=== PATIENT | male | born 1990 | race Caucasian/White ===

== ENCOUNTER 2017-05-08 08:07 | Emergency (ER) | payer OTHER ==
[~2017-05-08] VITALS: Ht 175.3 cm; Wt 59.0 kg
[2017-05-08 08:10] VITALS: BP 125/69
--- NOTE | 2017-05-08 08:54 | NUR ---
Note undone in EDM - 05/08/17 at 0857 by [facility] PATIENT BIB [place] [facility] FOR PREBOOK; NO C/O PAIN AT THIS TIME;HX OF EPILEPSY;RX OF LORAZEPAM;DENIES N/V/D; SKIN IS PINK/WARM/DRY; AAOX4 WITH EVEN AND STEADY GAIT; LUNGS CLEAR BL; HR EVEN AND REGULAR; PT DENIES ANY FEVER, CP, SOB, OR COUGH AT THIS TIME; PATIENT STATES PAIN OF 0/10 AT THIS TIME; VSS; PATIENT POSITIONED FOR COMFORT; HOB ELEVATED; BEDRAILS UP X2; BED DOWN. ER MADE AWARE OF PT STATUS.
--- NOTE | 2017-05-08 08:54 | NUR ---
PATIENT BIB [place] [facility] FOR PREBOOK; NO C/O PAIN AT THIS TIME;HX OF EPILEPSY;RX OF LORAZEPAM;DENIES N/V/D; SKIN IS PINK/WARM/DRY; AAOX4 WITH EVEN AND STEADY GAIT; LUNGS CLEAR BL; HR EVEN AND REGULAR; PT DENIES ANY FEVER, CP, SOB, OR COUGH AT THIS TIME; PATIENT STATES PAIN OF 0/10 AT THIS TIME; VSS; PATIENT POSITIONED FOR COMFORT; ER MD MADE AWARE OF PT STATUS.
--- NOTE | 2017-05-08 09:40 | NUR ---
Patient discharged with v/s stable. Written and verbal after care instructions given and explained. Patient verbalized understanding. Police with steady gait. All questions addressed prior to discharge. Advised to follow up with PMD.
[2017-05-08 09:48] VITALS: BP 124/68
== END 2017-05-08 09:40 ==
LOC: MED 08:07
DX: Z02.89 Encounter for other administrative examinations (principal)
CPT/HCPCS: 99283

== ENCOUNTER 2019-01-30 17:40 | Emergency (ER) | payer MEDICAID, OTHER ==
[~2019-01-30] VITALS: Ht 175.3 cm; Wt 63.5 kg
[2019-01-30 17:45] VITALS: BP 136/94
--- NOTE | 2019-01-30 17:45 | NUR ---
IV removed, catheter intact and site benign. Applied folded 4x4 gauze and tape to stop bleeding.
--- NOTE | 2019-01-30 17:45 | NUR ---
PATIENT TRIAGED AT THIS TIME. PT EXPRESSING WISH TO NOT BE SEEN IN ED. VSS, ER MD JUNIOR SPEAKING WITH PATIENT. PT EDUCATED ON BENEFITS OF BEING TREATED IN THE ED.
--- NOTE | 2019-01-30 17:50 | NUR ---
PATIENT LEFT WITHOUT BEING SEEN BY DR. JUNIOR. NO FURTHER CARE PROVIDED FOR PATIENT.
== END 2019-01-30 17:50 | disposition left against medical advice (07) ==
LOC: MED 17:40
DX: T40.1X1A Poisoning by heroin, accidental (unintentional), initial encounter (principal); Z53.21 Procedure and treatment not carried out due to patient leaving prior to being seen by health care provider; Y92.89 Other specified places as the place of occurrence of the external cause

== ENCOUNTER 2021-12-16 15:40 | Emergency (ER) | payer MEDICAID, OTHER ==
[~2021-12-16] VITALS: Ht 172.7 cm; Wt 68.0 kg
[2021-12-16 15:47] VITALS: BP 124/77
--- NOTE | 2021-12-16 15:52 | NUR ---
C/O 09/23 RIGHT FOOT PAIN, REDNESS & SWELLING X 2 DAYS. DENIES TRAUMA/INJURY.
[2021-12-16] MEDS ORDERED: CEPH-588 PO (16:20)
[2021-12-16 16:44] VITALS: BP 123/76
== END 2021-12-16 16:44 | disposition home or self-care (01) ==
LOC: MED 15:40
DX: L03.115 Cellulitis of right lower limb (principal); Z79.899 Other long term (current) drug therapy
CPT/HCPCS: 99284

== ENCOUNTER 2022-06-15 13:54 | Emergency (ER) | payer MEDICAID, OTHER ==
[~2022-06-15] VITALS: Ht 175.3 cm; Wt 75.7 kg
[~2022-06-15 13:54] MED LIST: CEPH-588 PO
[2022-06-15 14:02] VITALS: BP 150/94
--- NOTE | 2022-06-15 14:07 | NUR ---
PT TAKEN TO [facility]
[2022-06-15] MEDS: KETOROLAC 30 MG/ML VIAL IM ONE (15:35)
[2022-06-15] MEDS: HYDROcodone/APAP 5/325 MG 1 TAB TAB PO ONE (16:41)
[2022-06-15] MEDS ORDERED: CYCL-711 PO (18:50)
[2022-06-15] MEDS ORDERED: ACET-8386 PO (18:50)
[2022-06-15 19:34] VITALS: BP 136/82
--- NOTE | 2022-06-15 19:34 | NUR ---
Patient discharged with v/s stable. Written and verbal after care instructions given and explained. Patient alert, oriented and verbalized understanding of instructions. Ambulatory with steady gait. All questions addressed prior to discharge. ID band removed. Patient advised to follow up with PMD. Rx of [place] and Flexeril given. Patient educated on indication of medication including possible reaction and side effects. Opportunity to ask questions provided and answered.
== END 2022-06-15 19:34 | disposition home or self-care (01) ==
LOC: MED 13:54
DX: R07.89 Other chest pain (principal); Z79.899 Other long term (current) drug therapy; Z98.890 Other specified postprocedural states
CPT/HCPCS: 71111; 71250; 96372; 99284; J1885

== ENCOUNTER 2023-10-14 16:08 | Observation (INO) | payer OTHER ==
[~2023-10-14] VITALS: Ht 175.3 cm; Wt 72.6 kg
[~2023-10-14 16:08] MED LIST changes: +ACET-8905 PO; +CYCL-711 PO
[2023-10-14 16:09] VITALS: BP 124/69; PULSE 102; RESP 22; TEMP 107; O2SAT 98
[2023-10-14] MEDS ORDERED: MIDAZOLAM 5 MG/1 ML VIAL ONE (16:11)
[2023-10-14] MEDS: MIDAZOLAM 5 MG/1 ML VIAL IM STA (16:33)
[2023-10-14] MEDS ORDERED: WATER STERILE 10 ML MC ONE (16:35)
[2023-10-14] MEDS: OLANZapine 10 MG VIAL IM ONE (16:41)
[2023-10-14 17:09] LABS: ALCOHOL, BLOOD < 3 mg/dL (<10)
[2023-10-14 17:10] LABS: ACETAMINOPHEN < 0.5 ug/ml (10-30)
[2023-10-14 18:26] LABS: ANION GAP 23.6 (8-16); BASOPHILS % (AUTO) 0.4 % (0.0-2.0); CALCIUM 9.5 mg/dL (8.5-10.1); CARBON DIOXIDE 22.1 mmol/L (21-32); CREATININE 1.2 mg/dL (0.6-1.3); EOSINOPHILS % (AUTO) 0.2 % (0.0-4.0); HEMATOCRIT 47.4 % (36-52); HEMOGLOBIN 16.3 g/dL (12.0-18.0); LYMPHOCYTES # (AUTO) 2.8 K/uL (2.0-11.5); MEAN CORPUSCULAR HEMOGLOBIN 29 pg (27-31); MEAN CORPUSCULAR HGB CONC 34 g/dL (33-37); MEAN CORPUSCULAR VOLUME 83.3 fL (80-94); MONOCYTES # (AUTO) 0.8 K/uL (0.8-1.0); MONOCYTES % (AUTO) 6.6 % (1.7-9.3); NEUTROPHILS # (AUTO) 8.1 K/uL (1.8-7.7); NEUTROPHILS % (AUTO) 68.8 % (42.2-75.2); PLATELET COUNT (AUTO) 507 K/uL (140-450); POTASSIUM 3.7 mmol/L (3.5-5.1); RED BLOOD CELL COUNT(AUTO) 5.69 MIL/uL (4.20-6.10); RED CELL DISTRIBUTION WIDTH 13.3 % (11.6-13.7); WHITE BLOOD COUNT (AUTO) 11.7 K/uL (4.8-10.8)
[2023-10-14] MEDS: NACL 0.9% 2,000 ML IV ONE (18:39)
[2023-10-14 18:59] LABS: APPEARANCE,URINE CLEAR (CLEAR); BILIRUBIN,URINE 1+ (NEGATIVE); BLOOD, URINE 2+ (NEGATIVE); COLOR,URINE YELLOW (YELLOW); LEUKOCYTE ESTERASE ,URINE NEGATIVE (NEGATIVE); NITRITE, URINE NEGATIVE (NEGATIVE); PROTEIN,URINE NEGATIVE (NEGATIVE); UGLUCOSE NEGATIVE (NEGATIVE); UROBILINOGEN,URINE 0.2 EU/dL (0.2 - 1)
[2023-10-14 19:05] LABS: AMPHETAMINE, URINE POSITIVE ng/ml (NEG <=1000); BARBITURATE, URINE NEGATIVE ng/ml (NEG <=200); BENZODIAZEPINE, URINE NEGATIVE ng/mL (NEG <=200); CANNABINOID, URINE NEGATIVE ng/mL (NEG <=50); COCAINE, URINE NEGATIVE ng/mL (NEG <=300); OPIATE, URINE NEGATIVE ng/mL (NEG <=2000); PHENCYCLIDINE SCREEN,URINE NEGATIVE ng/mL (NEG <=25)
[2023-10-14 19:06] LABS: ICTOTEST NEGATIVE (NEGATIVE)
[2023-10-14 19:07] LABS: BACTERIA,URINE FEW /HPF (None Seen); MUCUS,URINE 1+ /LPF (None Seen); RBC,URINE 11-20 (MOD) /HPF (0-5); SQUAMOUS EPITHELIAL CELL,UR 4-10 (MOD) /LPF (0-3 (FEW)); TRICHOMONAS,URINE None Seen /HPF (None Seen); WBC,URINE 0-5 /HPF (0-5); YEAST,URINE None Seen /HPF (None Seen)
[2023-10-14] MEDS ORDERED: ONDANSETRON 4 MG/2 ML VIAL IVP PRN (20:20)
[2023-10-14] MEDS ORDERED: MAGNESIUM OXIDE 400 MG TAB PO PRN (20:20)
[2023-10-14] MEDS ORDERED: ACETAMINOPHEN 325 MG TAB PO PRN (20:20)
[2023-10-14] MEDS ORDERED: POTASSIUM CHLORIDE 10 MEQ TABER PO PRN (20:20)
[2023-10-14] MEDS ORDERED: cefTRIAXone 1,000 MG VIAL ONE (21:25)
[2023-10-14] MEDS: NACL 0.9% 1,000 ML IV SCH (22:27)
[2023-10-15 06:49] LABS: BASOPHILS # (AUTO) 0.1 K/uL (0.00-0.22); BASOPHILS % (AUTO) 0.8 % (0.0-2.0); EOSINOPHILS # (AUTO) 0.1 K/uL (0-0.4); EOSINOPHILS % (AUTO) 0.9 % (0.0-4.0); HEMOGLOBIN 14.1 g/dL (12.0-18.0); LYMPHOCYTES # (AUTO) 2.5 K/uL (2.0-11.5); LYMPHOCYTES % (AUTO) 24.4 % (20.5-51.1); MEAN CORPUSCULAR HEMOGLOBIN 28 pg (27-31); MEAN CORPUSCULAR HGB CONC 34 g/dL (33-37); MEAN CORPUSCULAR VOLUME 82.6 fL (80-94); MONOCYTES # (AUTO) 0.6 K/uL (0.8-1.0); MONOCYTES % (AUTO) 6.3 % (1.7-9.3); NEUTROPHILS # (AUTO) 6.8 K/uL (1.8-7.7); NEUTROPHILS % (AUTO) 67.6 % (42.2-75.2); PLATELET COUNT (AUTO) 397 K/uL (140-450); RED BLOOD CELL COUNT(AUTO) 4.97 MIL/uL (4.20-6.10); RED CELL DISTRIBUTION WIDTH 13.6 % (11.6-13.7); WHITE BLOOD COUNT (AUTO) 10.1 K/uL (4.8-10.8)
[2023-10-15 07:43] LABS: ALBUMIN 3.3 g/dL (3.4-5.0); ANION GAP 17.5 (8-16); CALCIUM 8.4 mg/dL (8.5-10.1); CARBON DIOXIDE 21.2 mmol/L (21-32); CREATININE 0.9 mg/dL (0.6-1.3); MAGNESIUM 2.1 mg/dL (1.8-2.4); POTASSIUM 3.7 mmol/L (3.5-5.1); TOTAL PROTEIN, SERUM 6.2 g/dL (6.4-8.2)
[2023-10-15] MEDS: ENOXAPARIN 40 MG/0.4 ML SYR SUBQ SCH (09:00)
[2023-10-15] MEDS: HYDROcodone/APAP 5/325 MG 1 TAB TAB PO PRN (10:11)
[2023-10-15 11:05] VITALS: PULSE 58; RESP 20; O2SAT 100
[2023-10-15 11:18] VITALS: BP 132/80; PULSE 58; RESP 18; TEMP 98; O2SAT 100
[2023-10-15 12:26] VITALS: PULSE 58
[2023-10-15] MEDS ORDERED: MEDS-TO-BEDS MC SCH (21:00)
== END 2023-10-15 12:45 | disposition left against medical advice (07) ==
LOC: MED 16:08 → MTU 20:20
PROVIDERS: ADMIT Hospitalist; ATTEND Hospitalist
DX: E87.20 Acidosis, unspecified (principal); R45.1 Restlessness and agitation; F11.90 Opioid use, unspecified, uncomplicated; R41.0 Disorientation, unspecified; Z79.899 Other long term (current) drug therapy
CPT/HCPCS: 36415; 36600; 70450; 71045; 80048; 80053; 80305; 81001; 82553; 82803; 82948; 83605; 83735; 85025; 87040; 93005; 96361; 96365; 96372; 99291; G0378; G0480; J0696; J1650; J2250; J3490; J7060; Q0092; G0482